=== PATIENT | male | born 1995 | race Caucasian/White ===

== ENCOUNTER 2019-06-28 19:04 | Emergency (ER) | payer OTHER ==
[2019-06-28] MEDS ORDERED: Adacel Vial IM ONE ×2 (19:27→19:30)
[2019-06-28 19:28] VITALS: BP 122/77; PULSE 54; O2SAT 100
--- NOTE | 2019-06-28 19:34 | ERPHSYRPT ---
- History of Present Illness Time Seen by Provider: 06/28/19 19:20 Exam Limitations: no limitations Patient Subjective Stated Complaint: Laceration to right wrist Triage Nursing Assessment: Patient ambulated into ED and transferred self to bed. Patient A+O X3. Patient's skin pink, warm and dry. 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 Laceration noted to be 3/4 inch long. Patient states pain is 7/10. Physician History: Right wrist laceration on the palm side after accidental puncture with a screwdriver. Patient can not recall his last tetanus. He denies any loss of function, but he does have some swelling distal to the laceration and dorsally to the laceration. Occurred: just prior to arrival Method of Injury: incised Quality: intermittent Severity of Pain-Max: mild Severity of Pain-Current: none Extremities Pain Location: wrist: right (laceration to the palm side) Modifying Factors: Improves With: movement (causing bleeding to recur), other ( direct pressure stopped the bleeding) Associated Symptoms: none, No chest discomfort, No chest pain, No dyspnea, No jaw pain, No nausea, No neck pain, No sweating, No vomiting Allergies/Adverse Reactions: No Known Drug Allergies Allergy (Unverified 06/28/19 19:14) Home Medications: No Reportable Medications [No Reported Medications] 06/28/19 [History] Hx Tetanus, Diphtheria Vaccination/Date Given: No Immunizations Up to Date: Yes - Review of Systems Constitutional: No Fever, No Chills Eyes: No Symptoms, No Eye Pain, No Vision Changes Ears, Nose, & Throat: No Symptoms, No Ear Pain, No Nose Pain, No Epistaxis, No Mouth Pain, No Painful Swallowing Respiratory: No Cough, No Dyspnea Cardiac: No Chest Pain, No Edema, No Syncope Abdominal/Gastrointestinal: No Abdominal Pain, No Nausea, No Vomiting, No Diarrhea Genitourinary Symptoms: No Flank Pain Musculoskeletal: No Back Pain, No Neck Pain Skin: No Rash Neurological: No Dizziness, No Focal Weakness, No Sensory Changes Psychological: No Symptoms Endocrine: No Symptoms Hematologic/Lymphatic: No Easy Bleeding, No Easy Bruising All Other Systems: Reviewed and Negative - Past Medical History Pertinent Past Medical History: No Neurological History: No Pertinent History ENT History: No Pertinent History Cardiac History: No Pertinent History Respiratory History: No Pertinent History Endocrine Medical History: No Pertinent History Musculoskeletal History: No Pertinent History GI Medical History: No Pertinent History History: No Pertinent History Psycho-Social History: No Pertinent History Male Reproductive Disorders: No Pertinent History - Past Surgical History Past Surgical History: No Neuro Surgical History: No Pertinent History Cardiac: No Pertinent History Respiratory: No Pertinent History Gastrointestinal: No Pertinent History Genitourinary: No Pertinent History Musculoskeletal: No Pertinent History Male Surgical History: No Pertinent History - Social History Smoking Status: Never smoker Exposure to second hand smoke: No Drug Use: none Patient Lives Alone: No - Nursing Vital Signs Nursing Vital Signs: Initial Vital Signs Temperature 97.9 F 06/28/19 19:15 Pulse Rate 54 L 06/28/19 19:15 Respiratory Rate 18 06/28/19 19:15 Blood Pressure 122/77 06/28/19 19:15 O2 Sat by Pulse Oximetry 100 06/28/19 19:15 Pain Scale Pain Intensity 7 - Physical Exam General Appearance: no apparent distress, alert Eyes, Ears, Nose, Throat Exam: moist mucous membranes Neck Exam: normal inspection, non-tender, supple, full range of motion Cardiovascular/Respiratory Exam: chest non-tender, normal breath sounds, regular rate/rhythm, no respiratory distress Abdominal Exam: non-tender, No guarding Back Exam: normal inspection, No vertebral tenderness Shoulder Exam: normal inspection, non-tender, no evidence of injury, normal ROM Elbow/Forearm Exam: normal inspection, non-tender, no evidence of injury, normal ROM Wrist Exam: non-tender, normal ROM, swelling, No asymmetry, No bone tenderness, No deformity, No ecchymosis, No limited ROM, No pain, No soft tissue tenderness Hand Exam: normal inspection, non-tender, no evidence of injury, normal ROM DTR - Upper Extremity Exam: bicep (R): 2+, bicep (L): 2+ Neuro/Tendon Exam: normal sensation, normal motor functions, normal tendon functions, no evidence tendon injury, No motor deficit, No sensory deficit Mental Status Exam: alert, oriented x 3, cooperative Skin Exam: normal color, warm, dry, laceration (6mm volar aspect of right volar wrist on the radial side with minimal active bleeding; no contamination) SpO2 Interpretation: normal SpO2: 100 O2 Delivery: Room Air Procedures - Laceration/Wound Repair Right Volar Wrist Wound Location: Right, wrist Wound Length (cm): 0.6 Wound's Depth, Shape: superficial, linear, into subcut Wound Explored: to base Irrigated: Yes Hibiclens Prep: Yes Volume Anesthetic (ccs): 0 Wound Debrided: none Wound Repaired With: sutures Suture Size/Type: 4-0, ethilon Number of Sutures: 1 Layer Closure?: No Sterile Dressing Applied?: Yes Splint Applied?: No Ordered Tests: Active Orders 24 hr Category Date Time Status Dressing Care UD Care 06/28/19 19:27 Active Medication Summary Discontinued Medications Generic Name Dose Route Start Last Admin Trade Name Freq PRN Reason Stop Dose Admin Diphtheria/Tetanus/Acell Pertussis 0.5 ml 06/28/19 19:27 Adacel Vial IM 06/28/19 19:28 .ONCE ONE Diphtheria/Tetanus/Acell Pertussis Confirm 06/28/19 19:30 Adacel Vial Administered 06/28/19 19:31 Dose 0.5 ml IM .LETSGROOP ONE - Progress Progress: improved Progress Note: 06/28/19 19:34 Neurovascularly intact after placement of the suture distal to the laceration repair. Counseled pt/family regarding: diagnosis, need for follow-up - Departure Departure Disposition: Home Clinical Impression: Laceration of right wrist without complication Qualifiers: Encounter type: initial encounter Qualified Code(s): S61.511A - Laceration without foreign body of right wrist, initial encounter Condition: Good Critical Care Time: No Referrals: TYSON PARRISH MD [Primary Care Provider] - ADELITA BRANTLEY [ACTIVE STAFF] - 07/08/19 (remove one suture) Instructions: Laceration Repair With Stitches (DC), Tdap Vaccine Additional Instructions: 1 suture needs removed in 10 days. Do not submerge your wrist in water. Keep the area clean. return in nearly back to the emergency room if any loss of function, loss of strength, loss of sensation, discoloration, or any other concerning signs or symptoms that were not present in today's emergency room visit for immediate reevaluation in the emergency department.
== END 2019-06-28 19:40 | disposition home or self-care (01) ==
LOC: ED 19:04
DX: S61.511A Laceration without foreign body of right wrist, initial encounter (principal); W27.0XXA Contact with workbench tool, initial encounter
CPT/HCPCS: 12001; 90471; 90715; 99283